=== PATIENT | female | born 1975 | race Caucasian/White ===

== ENCOUNTER 2019-09-17 20:56 | Observation (INO) | payer OTHER, SELFPAY ==
--- NOTE | ~2019-09-17 | XR_ITS ---
XR abdomen/kub 1V 09/17/2019 23:22 Indication: Renal stones Procedure: KUB Comparison: CT dated 09/17/2019 Findings: There is dilation of the renal calyces bilaterally. There is a mildly dilated right ureter with persistent column of contrast to be pelvis, compatible with distally obstructing ureteral stone. There is a filling defect in the left renal pelvis consistent with staghorn calculus. Bowel pattern is nonobstructive. There is small amount of contrast in the bladder. There is delayed right nephrogra m. Impression: 1: Staghorn calculus in the left renal pelvis. 2: Dilated bilateral renal calyces with persistent column of contrast in the right ureter consistent with an obstructing distal ureteral stone. Reviewed, dictated and finalized at location A. Impression: 1: Staghorn calculus in the left renal pelvis. 2: Dilated bilateral renal calyces with persistent column of contrast in the r ight ureter consistent with an obstructing distal ureteral stone.
--- NOTE | ~2019-09-17 | XR_ITS ---
EXAMINATION: XR retrograde pyelo w/stent RT DATE: 09/18/2019 10:47 INDICATION: Right internal ureteral stent placement. TECHNIQUE: Fluoroscopic images from a right internal ureteral stent placement are submitted for mikel landeros. 19 seconds of fluoroscopy time. FINDINGS: Initial right retrograde pyelogram demonstrates a filling defect in the distal aspect the u reter, consistent with ureteral stone. There is a right double-J internal ureteral stent projecting in expected position, with proximal [place] loop at the level of the renal pelvis and distal loop in the pelvis within the bladder lumen. IMPRESSION: 1. Right internal ureteral stent placement. Please refer to real-time procedural findings for detai ls. Reviewed, dictated and finalized at location A. IMPRESSION: 1. Right internal ureteral stent placement. Please refer to real-time procedu ral findings for details.
--- NOTE | ~2019-09-17 | CT_ITS ---
EXAMINATION: CT abdomen pelvis w con DATE: 09/17/2019 22:18 INDICATION: Right flank pain. Kidney stones. TECHNIQUE: Computed tomography (CT) of the abdomen and pelvis was performed without intravenous contr ast. The dose-length product was 506.90 mGy-cm. Automated exposure control and iterative reconstructi on technique were employed. COMPARISON: CT dated 09/15/2010 FINDINGS: Heart size is normal. No significant pleural or pericardial effusion. No significant vascul ar abnormality. No lymphadenopathy. There is a 5 mm distal right ureteral stone with mild right hydronephrosis. There is delayed nephrogr am. There is urothelial thickening and enhancement. There are large staghorn calculi in both kidneys with left renal atrophy. There is endometrial thickening with soft tissue attenuation. Recommend clinical evaluation to exclud e polyps. Nonobstructive bowel gas pattern. Normal appendix. Hepatic steatosis. The spleen, pancreas, adrenal glands are unremarkable. Mild lumbar spondylosis. IMPRESSION: 1. 5 mm distal right ureteral stone with mild hydroureteronephrosis. There is right urothelial enhanc ement which may be due to obstructing stone or less likely ascending urinary tract infection. 2: Large staghorn calculi in both kidneys with left renal atrophy. 3: Endometrial thickening with soft tissue attenuation. Recommend clinical evaluation to exclude poly ps. Reviewed, dictated and finalized at location A. IMPRESSION: 1. 5 mm distal right ureteral stone with mild hydroureteronephrosis. There is r ight urothelial enhancement which may be due to obstructing stone or less likel y ascending urinary tract infection. 2: Large staghorn calculi in both kidneys with left renal atrophy. 3: Endometrial thickening with soft tissue attenuation. Recommend clinical eval uation to exclude polyps.
[2019-09-17 20:57] VITALS: BP 175/86; PULSE 112; RESP 16; TEMP 37.3; O2SAT 100
--- NOTE | 2019-09-17 21:20 | ED.ABDPAIN ---
HPI - Abdominal Pain General Chief Complaint: Urogenital-Female Stated Complaint: kidney stone Time Seen by Provider: 09/17/19 21:15 Source: RN notes reviewed History of Present Illness HPI narrative: Patient presents emergency department from home for abdominal pain. Patient states symptoms began yesterday. The pain is located in the right flank and radiates around to the right lower quadrant described as sharp and stabbing associated with nausea and vomiting. Patient states she has a history of kidney stones and feels like prior. States taken no previous pain medication for the symptoms at home. Followed by urology Dr. Michelle. Denies any fevers or chills chest pain shortness of breath diarrhea or any other symptoms Related Data Allergies Allergy/AdvReac Type Severity Reaction Status Date / Time acetaminophen Allergy Mild Verified 05/29/17 08:31 erythromycin base Allergy Mild Verified 05/29/17 08:31 Macrolide Antibiotics Allergy Unknown Verified 05/29/17 08:31 Penicillins Allergy Unknown Verified 05/29/17 08:31 HYDROCODONE BIT Allergy Mild Uncoded 05/29/17 08:31 Review of Systems Review of Systems: Narrative: Gen.: Denies fevers or chills ENT: Denies congestion Respiratory: Denies shortness of breath or cough CV: Denies chest pain or palpitations GI: See HPI denies burning, urgency, frequency or hematuria Musculoskeletal: Denies back pain or muscle pain Neuro: Denies numbness, tingling, weakness or focal weakness Skin: Denies rash Except as documented, all other systems reviewed and negative PMFSH Past Medical History Medical History (Updated 09/17/19 @ 23:55 by Nima Leija DO) Hypertension Kidney stones Social History Social History (Updated 09/17/19 @ 21:21 by Nima Leija DO) Smoking status: Never smoker Exam Narrative: Exam Narrative: APPEARANCE: No acute distress, nontoxic, resting in bed HEENT: Normocephalic, atraumatic, OMM RESPIRATORY: No respiratory distress, clear to auscultation bilaterally with no rhonchi wheezing or rales CARDIOVASCULAR: RRR s murmur ABDOMINAL: Soft, nondistended, tender to palpation in right upper quadrant right lower quadrant no tenderness left upper quadrant left lower quadrant no rebound or guarding, right flank tenderness MUSCULOSKELETAl: Moves all extremities. No clubbing, cyanosis or edema. NEURO: Awake and alert. Following commands, speech normal, no focal deficits SKIN:: Warm, dry. Normal Color PSYCHIATRIC: Normal affect/mood Course Course Emergency Course: Discussed with Dr. Obrien for urology presentation work-up this time agrees is admission with patient to be n.p.o. started on Levaquin and will follow as inpatient Discussed with Dr. Castillo presentation work-up. Agrees with admission at this time Discussed with patient and family results of workup and diagnosis. Discussed need for admission. Patient and family understand and agree to current treatment plan Vital Signs Vital signs: Vital Signs Temperature 99.1 F 09/17/19 20:57 Pulse Rate 112 H 09/17/19 20:57 Respiratory Rate 16 09/17/19 20:57 Blood Pressure 175/86 H 09/17/19 20:57 Pulse Oximetry 100 09/17/19 20:57 Temperature 99.1 F 09/17/19 20:57 Pulse Rate 112 H 09/17/19 20:57 Respiratory Rate 16 09/17/19 20:57 Blood Pressure 175/86 H 09/17/19 20:57 Pulse Oximetry 100 09/17/19 20:57 MDM - Abdominal Pain Lab Data Result diagrams: 09/17/19 21:24 09/17/19 21:24 Labs: Lab Results 09/17/19 09/17/19 09/17/19 Range/Units 21:24 21:24 21:27 WBC 18.0 H (4.5-10.0) K/mm3 RBC 4.46 (4.2-5.4) M/mm3 Hgb 12.9 (12.0-15.0) g/dL Hct 38.3 (37.0-47.0) % MCV 85.9 (80-100) fl MCH 28.9 (26-34) pg MCHC 33.7 (32-36) g/dl RDW 12.2 (11.5-14.5) % Plt Count 412 H (150-375) k/mm3 MPV 9.1 (7.4-10.4) fl Immature Gran % (Auto) 0.8 H (0-0.5) % Neut % (Auto) 79.7 H (45.5-73.1) % Lymp
[2019-09-17 21:30] LABS: Basophils Absolute Auto 0.1 K/mm3 (0.0-0.1); Basophils Percent Auto 0.4 % (0.2-1.2); Eosinophils Absolute Auto 0.1 K/mm3 (0-0.3); Eosinophils Percent Auto 0.3 % (0-4.4); Hematocrit 38.3 % (37.0-47.0); Hemoglobin 12.9 g/dL (12.0-15.0); Immature Granulocyte Absolute 0.14 K/mm3 (0.00-0.031); Immature Granulocyte Percent A 0.8 % (0-0.5); Lymphocytes Absolute Auto 2.03 K/mm3 (0.9-3.2); Lymphocytes Percent Auto 11.3 % (18.3-44.2); Mean Corpuscular HGB Conc 33.7 g/dl (32-36); Mean Corpuscular Hemoglobin 28.9 pg (26-34); Mean Corpuscular Volume 85.9 fl (80-100); Mean Platelet Volume 9.1 fl (7.4-10.4); Monocytes Absolute Auto 1.4 K/mm3 (0.1-0.6); Monocytes Percent Auto 7.5 % (2.6-8.5); Neutrophils Absolute Auto 14.3 K/mm3 (1.3-6.7); Neutrophils Percent Auto 79.7 % (45.5-73.1); Platelet Count Result 412 k/mm3 (150-375); Red Blood Count 4.46 M/mm3 (4.2-5.4); Red Cell Distribution Width 12.2 % (11.5-14.5)
[2019-09-17] MEDS: SODIUM CHLORIDE 0.9% IV 1,000 ML 999 ML IV CONT (21:30)
[2019-09-17] MEDS: ONDANSETRON INJ 4 MG/2 ML VIAL IV PUSH (21:30)
[2019-09-17] MEDS: MORPHINE SULFATE 4 MG/ML INJ IV PUSH (21:31)
[2019-09-17 21:42] LABS: Blood Urea Nitrogen 22 mg/dL (7-17); Calcium 9.5 mg/dL (8.4-10.2); Carbon Dioxide 22 mmol/L (22-30); Chloride 104 mmol/L (98-107); Estimated Glomerular Filt Rate 49; Glucose 140 mg/dL (65-105); Potassium 3.8 mmol/L (3.4-5.0); Sodium 138 mmol/L (137-145)
[2019-09-17 21:45] LABS: Add Urine Microscopic? YES; Appearance Urine Clear (Clear); Bacteria Urine Trace /hpf; Bilirubin Urine Negative (Negative); Blood Urine 2+ (Negative); Color Urine Yellow (Yellow); Glucose Urine UA Negative (Negative); Ketones Urine Negative (Negative); Leukocyte Esterase Ur Trace LEU/UL (Negative); Mucus Urine Rare /lpf; Nitrate Urine Negative (Negative); Protein Urine 2+ mg/dL (Negative); RBC Urine >75 /hpf (0-2); Specific Grav Ur 1.014 (1.001-1.035); Squamous Epithelial Cell Urine Few /hpf (Few); Urobilinogen Urine Negative mg/dL (<2.0); WBC Urine 16-20 /hpf
[2019-09-17] MEDS: KETOROLAC 30 MG/ML VIAL (*BKC) IV PUSH (22:56)
[2019-09-17] MEDS: TAMSULOSIN HCL 0.4 MG CAPSULE PO (23:48)
[2019-09-17 23:51] LABS: Lactic Acid Reflex 1.1 mmol/L (0.7-2.1)
[2019-09-18] VITALS (11 sets, daily range): BP systolic 68–138; BP diastolic 44–69; PULSE 56–93; RESP 12–20; TEMP 36.7–37.1; O2SAT 95–100; BMI 31.1
--- NOTE | 2019-09-18 00:56 | ADMGEN ---
This patient, Paulina Schrader, was admitted to 3 Med Surg Room 312-01. Patient/family oriented to hospital policies and general routines including ID bracelet, bed and alarms, visiting hours, pain management, procedures, bathroom and other care routines, personal items, smoking policy, room service/diet, and visiting hours. Valuables list has been completed. Information on how to activate the Rapid Response Team has been discussed. Patient/Family are encouraged to report perceived risks to care and to ask questions if they do not understand what they are told or what they should do.
[2019-09-18] MEDS: SODIUM CHLORIDE 0.9% IV 1,000 ML 125 ML IV CONT ×4 (01:13→19:48)
[2019-09-18 06:18] LABS: Basophils Absolute Auto 0.1 K/mm3 (0.0-0.1); Basophils Percent Auto 0.3 % (0.2-1.2); Hematocrit 30.3 % (37.0-47.0); Hemoglobin 9.9 g/dL (12.0-15.0); Immature Granulocyte Absolute 0.11 K/mm3 (0.00-0.031); Immature Granulocyte Percent A 0.7 % (0-0.5); Lymphocytes Absolute Auto 1.21 K/mm3 (0.9-3.2); Lymphocytes Percent Auto 8.2 % (18.3-44.2); Mean Corpuscular HGB Conc 32.7 g/dl (32-36); Mean Corpuscular Hemoglobin 28.7 pg (26-34); Mean Corpuscular Volume 87.8 fl (80-100); Mean Platelet Volume 9.1 fl (7.4-10.4); Monocytes Absolute Auto 1.5 K/mm3 (0.1-0.6); Monocytes Percent Auto 10.3 % (2.6-8.5); Neutrophils Absolute Auto 11.9 K/mm3 (1.3-6.7); Neutrophils Percent Auto 80.5 % (45.5-73.1); Platelet Count Result 296 k/mm3 (150-375); Red Blood Count 3.45 M/mm3 (4.2-5.4); Red Cell Distribution Width 12.5 % (11.5-14.5); White Blood Count 14.8 K/mm3 (4.5-10.0)
[2019-09-18 06:39] LABS: Blood Urea Nitrogen 24 mg/dL (7-17); Calcium 8.2 mg/dL (8.4-10.2); Carbon Dioxide 22 mmol/L (22-30); Chloride 107 mmol/L (98-107); Estimated Glomerular Filt Rate 41; Glucose 111 mg/dL (65-105); Sodium 137 mmol/L (137-145)
--- NOTE | 2019-09-18 07:58 | ECG_ITS ---
Measurements Intervals [place] Rate: 79 P: 33 [place]: 183 QRS: 13 QRSD: 149 T: 2 QT: 461 QTc: 531 Interpretive Statements SINUS RHYTHM LEFT BUNDLE BRANCH BLOCK ABNORMAL ECG Electronically Signed On 09-18-2019 13:11:27 CDT by Elliott Sifuentes D.O.
[2019-09-18] MEDS: ONDANSETRON INJ 4 MG/2 ML VIAL IV PUSH (08:01)
[2019-09-18] MEDS: ONDANSETRON INJ 4 MG/2 ML VIAL (08:07)
--- NOTE | 2019-09-18 09:14 | WPDANESEPP ---
Anes - Eval Pre Procedure Procedure: cysto R stent placement Date/Time: 09/18/19 09:14 Pre Op Diagnosis: kidney stone,UTI Patient Data Age: 44 Gender: F Height: 1.47 m Weight: 67.5 kg Last Vital Signs Temp 36.8 C 09/18/19 06:00 Pulse 65 09/18/19 06:00 Resp 16 09/18/19 06:00 BP 101/53 L 09/18/19 06:00 Pulse Ox 100 09/18/19 06:00 Allergies Allergy/AdvReac Type Severity Reaction Status Date / Time acetaminophen Allergy Mild Verified 05/29/17 08:31 erythromycin base Allergy Mild Verified 05/29/17 08:31 Macrolide Antibiotics Allergy Unknown Verified 05/29/17 08:31 Penicillins Allergy Unknown Verified 05/29/17 08:31 HYDROCODONE BIT Allergy Mild Uncoded 05/29/17 08:31 Home Medications Medication Instructions Recorded Confirmed Type lisinopril-hydrochlorothiazide 1 tablet PO HS 09/18/19 09/18/19 History Laboratory Tests 09/17/19 09/17/19 09/17/19 21:24 21:24 21:27 WBC 18.0 K/mm3 H K/mm3 (4.5-10.0) RBC 4.46 M/mm3 M/mm3 (4.2-5.4) Hgb 12.9 g/dL g/dL (12.0-15.0) Hct 38.3 % % (37.0-47.0) MCV 85.9 fl fl (80-100) MCH 28.9 pg pg (26-34) MCHC 33.7 g/dl g/dl (32-36) RDW 12.2 % % (11.5-14.5) Plt Count 412 k/mm3 H k/mm3 (150-375) MPV 9.1 fl fl (7.4-10.4) Immature Gran % (Auto) 0.8 % H % (0-0.5) Neut % (Auto) 79.7 % H % (45.5-73.1) Lymph % (Auto) 11.3 % L % (18.3-44.2) [place] % (Auto) 7.5 % % (2.6-8.5) Eos % (Auto) 0.3 % % (0-4.4) Baso % (Auto) 0.4 % % (0.2-1.2) Lymph # (Auto) 2.03 K/mm3 K/mm3 (0.9-3.2) [place] # (Auto) 1.4 K/mm3 H K/mm3 (0.1-0.6) Eos # (Auto) 0.1 K/mm3 K/mm3 (0-0.3) Baso # (Auto) 0.1 K/mm3 K/mm3 (0.0-0.1) Abs Immat Gran (auto) 0.14 K/mm3 H K/mm3 (0.00-0.031) Absolute Neuts (auto) 14.3 K/mm3 H K/mm3 (1.3-6.7) Absolute Nucleated RBC 0.0 K/mm3 K/mm3 (0.0-0.012) Nucleated RBC % 0.0 % % (0.0-0.2) Sodium 138 mmol/L mmol/L (137-145) Potassium 3.8 mmol/L mmol/L (3.4-5.0) Chloride 104 mmol/L mmol/L (98-107) Carbon Dioxide 22 mmol/L mmol/L (22-30) BUN 22 mg/dL H mg/dL (7-17) Creatinine 1.20 mg/dL H mg/dL (0.7-1.0) Estim Creat Clear Calc Not Reportable Estimated GFR 49 L (59 - ) Glucose 140 mg/dL H mg/dL (65-105) Lactic Acid Calcium 9.5 mg/dL mg/dL (8.4-10.2) Urine Color Yellow (Yellow) Urine Appearance Clear (Clear) Urine pH 6.0 (5.0-9.0) Ur Specific [place] 1.014 (1.001-1.035) Urine Protein 2+ mg/dL H mg/dL (Negative) Urine Glucose (UA) Negative mg/dL mg/dL (Negative) Urine Ketones Negative mg/dL mg/dL (Negative) Ur Blood (Man) 2+ H (Negative) Urine Nitrate Negative (Negative) Urine Bilirubin Negative (Negative) Urine Urobilinogen Negative mg/dL mg/dL (<2.0) Leukocyte Esterase Rfl Trace CLAUDE/UL H CLAUDE/UL (Negative) Urine RBC >75 /hpf H /hpf (0-2) Urine WBC 16-20 /hpf H /hpf Ur Squamous Epith Cells Few /hpf /hpf (Few) Urine Bacteria Trace /hpf /hpf Urine Mucus Rare /lpf /lpf 09/17/19 09/18/19 09/18/19 23:32 06:03 06:03 WBC 14.8 K/mm3 H K/mm3 (4.5-10.0) RBC 3.45 M/mm3 L M/mm3 (4.2-5.4) Hgb 9.9 g/dL L D g/dL (12.0-15.0) Hct 30.3 % L % (37.0-47.0) MCV 87.8 fl fl (80-100) MCH 28.7 pg pg (26-34) MCHC 32.7 g/dl g/dl (32-36) RDW 12.5 % % (11.5-14.5) Plt Count 296 k/mm3 k/mm3 (150-375) MPV 9.1 fl fl (7.4-10.4) Immature Gran % (Auto) 0.7 % H % (0-0.5) Neut %
--- NOTE | 2019-09-18 10:07 | WPDANESEFPP ---
Anes - Eval Final PreProcedure Day of Procedure 09/18/19 10:07 Patient weight: obese Heart: regular rate and rhythm Lungs: clear to auscultation and normal air movement Airway: Mallampati scale class II Neurological: alert and oriented Last oral intake: >/= 8 hours ASA classification: II Emergent: yes Anesthetic plan: proceed Anesthesia type and monitoring: general GIVS and standard monitoring Informed Consent: The patient's anesthetic plan and its attendant risks and benefits were discussed with the patient/family/POA. Questions were solicited and answers provided to the satisfaction of the patient/family/POA.
--- NOTE | 2019-09-18 10:21 | PC.NURSE ---
To OR per BED [ ], IV OF NS INFUSING WITHOUT DIFFICULTY. SITE CLEAN PT VOIDED BEFORE LEAVING FLOOR, JEWLERY REMOVED AND LOCKED IN CLOSET WITH PHONE. IN NO APPARENT DISTRESS, PT CALLED FAMILY TO LEFT THE KNOW. [ ]
--- NOTE | 2019-09-18 10:24 | WPDURCON ---
Assessment and Plan Assessment and plan (1) Ureteral stone: Code(s): N20.1 - Calculus of ureter Status: Acute Assessment and Plan: Will be taken to the operating room today for cystoscopy and right ureteral stent placement. She understands risks of bleeding, infection, inability to place the stent. She understands I will not be removing the stone at this time and we will plan at on another date. (2) Hydronephrosis: Code(s): N13.30 - Unspecified hydronephrosis Status: Acute (3) Multiple renal calculi: Code(s): N20.0 - Calculus of kidney Status: Acute Assessment and Plan: She has large staghorn stones bilaterally with some left renal atrophy. Ultimately she will require bilateral percutaneous nephrolithotomies. (4) Abnormal urinalysis: Code(s): R82.90 - Unspecified abnormal findings in urine Status: Acute Assessment and Plan: Should be maintained on antibiotics pending urine culture. Urology Consult Note HPI Date Seen: 09/18/19 Requesting Physician: Rupinder Camacho PA-C Primary Care Provider: Matheus Summers MD Consult Narrative Narrative: Paulina Schrader is a 44 year old female she has history of stone disease. She has seen my partner Dr. Michelle in the past. Her last episode of nephrolithiasis was 2 years ago. It passed on its own. She has been asymptomatic for the last 2 years. She is aware that she has large stones in for bilateral kidneys. She comes into the ER last night late complaining of right-sided flank pain of 2 days radiating to the right lower quadrant with some nausea. There is no vomiting. There is no fevers. She had mild intermittent dysuria. I reviewed her CT scan. She has a 5 mm mid to distal ureteral stone on the right. She also has large staghorn stones bilaterally. She was admitted to the hospital for IV antibiotics and urologic intervention. She undergo ureteral stenting today. Review of Systems Review of Systems: All systems reviewed & are unremarkable except as noted in HPI and below [facility] Past Medical History Medical History (Updated 09/18/19 @ 10:27 by Lawrence Obrien MD) Hypertension Kidney stones Social History Social History (Updated 09/17/19 @ 21:21 by Nima C. [place], DO) Smoking status: Never smoker Alcohol intake: current Drinks per week: 0 Substance use: unknown Substance use type: does not use Gender identity (if verbalized by the patient): Female Spiritual care concerns: No Meds Home Medications and Allergies Home Medications Medication Instructions Recorded Confirmed Type lisinopril-hydrochlorothiazide 1 tablet PO HS 09/18/19 09/18/19 History Allergies Allergy/AdvReac Type Severity Reaction Status Date / Time acetaminophen Allergy Mild Verified 05/29/17 08:31 erythromycin base Allergy Mild Verified 05/29/17 08:31 Macrolide Antibiotics Allergy Unknown Verified 05/29/17 08:31 Penicillins Allergy Unknown Verified 05/29/17 08:31 HYDROCODONE BIT Allergy Mild Uncoded 05/29/17 08:31 Vital Signs Vital Signs - 24 hr 09/17/19 20:57 09/18/19 00:30 09/18/19 06:00 Temperature 99.1 F 98.8 F 98.3 F Pulse Rate 112 H 90 65 Respiratory Rate 16 20 16 Blood Pressure 175/86 H 138/69 101/53 L Pulse Oximetry 100 100 100 09/18/19 08:00 Temperature Pulse Rate 93 Respiratory Rate 20 Blood Pressure Pulse Oximetry 100 Exam Const: General: no acute distress and uncomfortable HENMT: Mouth: Yes moist mucous membranes abnormal Eyes: General: appearance normal, both eyes and all related structures Neck: Neck: supple Resp: Effort & Inspection: normal respiratory effort Cardio: Rate: regular rate GI: Inspection: non-distended Skin: General skin exam: normal color Neuro: Speech: normal speech Extrem: General: normal to inspection Psych: Speech and movement: Normal speech and movement present Results Labs CBC & Chem 7: 05/
[2019-09-18] MEDS: LIDOCAINE HCL 2% GEL UROJET 10 ML PKG MUCOUS MEM (10:36)
--- NOTE | 2019-09-18 10:44 | PM.PROC ---
Procedure Note - Detailed Date of procedure: 09/18/19 Pre-op diagnosis: kidney stone,UTI Right ureteral stone, abnormal urinalysis Post-op diagnosis: same Procedure performed: Cystoscopy. Right retrograde pyelogram. Right ureteral stent placement. Description of procedure: She was correctly identified and informed consent obtained. She is brought the operating room. She was given mac anesthesia. She was placed in a dorsal lithotomy position. Pressure points were padded. She was given appropriate perioperative antibiotics. A time-out performed. Cystoscopy revealed a normal-appearing bladder. Door Liner radiograph revealed delayed contrast in the right collecting system. Hydronephrosis was noted. Her renal stones were not visible on the left. The right renal stones were either not visible or obscured by contrast. I did a right retrograde pyelogram. I could see a filling defect in the mid to distal ureter consistent with stone. There was right hydronephrosis. I placed a guidewire into the kidney. I placed a 4.8 variable length stent. Proximal coil in the upper pole kidney. Distal coil in the bladder. The bladder was drained. She was awakened transferred to the PACU stable condition. Implants: 4.8 variable length stent Anesthesia: MAC Surgeon: Lawrence Obrien MD Estimated blood loss (mL): 0 Packing: No Pathology: none sent Condition: stable Disposition: PACU
[2019-09-18] MEDS: LACTATED RINGERS 1,000 ML 30 ML IV CONT (10:49)
--- NOTE | 2019-09-18 12:31 | PC.NURSE ---
Returned from OR perBED IV SITE CLEAN NS INFUSING AT 125CC/HR DENIES THE NEED FOR PAIN MEDS TALKED TO PT CONCERNING HER STENT AND THE NEED FOR STRAINING URINE. WAS CALLED BY RECOVERY NURSE NANCY. [ ]
--- NOTE | 2019-09-18 12:58 | PM.IMHP ---
H&P: HPI History of Present Illness Chief complaint: kidney stone,UTI Narrative: Date of admission: 09/17/2019 Date of service: 09/18/2019 Paulina Schrader is a 44 year old female with a past medical history of hypertension and nephrolithiasis with 2 prior lithotripsies who presented to the emergency department on 09/17/2019 with complaints of right-sided back and flank pain, nausea, and vomiting for approximately 2-3 days. She reports the pain started in her back, and once it began to radiate to the right flank she knew that she had a kidney stone and decided to come to the emergency department. She has associated dysuria and hematuria. She also endorsed feeling somewhat dizzy and lightheaded, as well as having a mild headache related to her pain. She has a history of kidney stones, and reports she has been getting them since she was 19 years old. She has previously been established with Dr. Michelle but has not followed up in approximately 10 years. She recently finished a course of Bactrim approximately 1 month ago for UTI. She has not followed up since then. She continues to endorse right flank pain, dysuria, and hematuria. Her CT scan revealed bilateral staghorn calculi with hydronephrosis and a distally obstructing ureteral stone. She has just returned from cystoscopy and right ureteral stent placement by Dr. Obrien. She tolerated the procedure well. Review of Systems Review of Systems: Narrative: A 12 point review of systems was reviewed with pertinent positives and negatives as per HPI. She denies subjective fever or chills. She denies shortness of breath, chest pain, palpitations. Her last menstrual period was 3 weeks ago. She denies bleeding or bruising. She denies depression or anxiety. [facility] Past Medical History Medical History (Updated 09/18/19 @ 13:17 by Rupinder Camacho PA-C) Hypertension Hypothyroid Kidney stones Surgical History Surgical History (Updated 09/18/19 @ 13:10 by Rupinder Camacho PA-C) History of lithotripsy Previous section Family History Family History (Updated 09/18/19 @ 13:11 by Rupinder Camacho PA-C) Mother Heart disease Unspecified. Patient is adopted and unclear on biologic family history. Social History Social History (Updated 09/18/19 @ 14:43 by Rupinder Camacho PA-C) Social History: She lives at home with her and 2 daughters. 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 She designates her Jamal as her surrogate decision maker and she would like to be full code. Smoking status: Never smoker Alcohol intake: current Drinks per week: 0 Alcohol use details: She typically consumes alcohol once per month. Substance use: unknown Substance use type: does not use Living arrangements: with family Occupation/Education: occupation Gender identity (if verbalized by the patient): Female Spiritual care concerns: No Meds Home Medications and Allergies Home Medications Medication Instructions Recorded Confirmed Type lisinopril-hydrochlorothiazide 1 tablet PO HS 09/18/19 09/18/19 History Allergies Allergy/AdvReac Type Severity Reaction Status Date / Time acetaminophen Allergy Mild Verified 05/29/17 08:31 erythromycin base Allergy Mild Verified 05/29/17 08:31 Macrolide Antibiotics Allergy Unknown Verified 05/29/17 08:31 Penicillins Allergy Unknown Verified 05/29/17 08:31 HYDROCODONE BIT Allergy Mild Uncoded 05/29/17 08:31 Vital Signs Vital Signs - 24 hr 09/17/19 20:57 09/18/19 00:30 09/18/19 06:00 Temperature 99.1 F 98.8 F 98.3 F Pulse Rate 112 H 90 65 Respiratory Rate 16 20 16 Blood Pressure 175/86 H 138/69 101/53 L Pulse Oximetry 100 100 100 09/18/19 08:00 09/18/19 10:49 09/18/19 11:00 Temperature 98.4 F Pulse Rate 93 72 64 Respiratory Rate 20 18 13 Blood Pressure 68/44 L 86/49 L Pulse Oximetry 100 95 96 09/18/19 11:15 09/18/19 11:30 09/18/19 11:41 Temperature Pulse Rate 60 56 L 66
[2019-09-18] MEDS: OXYBUTYNIN CHLORIDE 5 MG TABLET PO ×2 (13:01→17:07)
[2019-09-18] MEDS: FAMOTIDINE 20 MG TABLET PO (20:58)
[2019-09-19] MEDS: TRAMADOL HCL 50 MG TABLET PO (00:17)
[2019-09-19] MEDS: SODIUM CHLORIDE 0.9% IV 1,000 ML 125 ML IV CONT (03:22)
[2019-09-19 06:00] VITALS: BP 120/69; PULSE 65; RESP 20; TEMP 36.7; O2SAT 97
[2019-09-19 06:20] LABS: Basophils Percent Auto 0.5 % (0.2-1.2); Eosinophils Absolute Auto 0.1 K/mm3 (0-0.3); Eosinophils Percent Auto 1.2 % (0-4.4); Hematocrit 28.7 % (37.0-47.0); Hemoglobin 9.3 g/dL (12.0-15.0); Immature Granulocyte Absolute 0.05 K/mm3 (0.00-0.031); Immature Granulocyte Percent A 0.7 % (0-0.5); Lymphocytes Absolute Auto 1.69 K/mm3 (0.9-3.2); Mean Corpuscular HGB Conc 32.4 g/dl (32-36); Mean Corpuscular Hemoglobin 29.2 pg (26-34); Mean Corpuscular Volume 90.3 fl (80-100); Mean Platelet Volume 9.7 fl (7.4-10.4); Monocytes Absolute Auto 0.8 K/mm3 (0.1-0.6); Monocytes Percent Auto 10.7 % (2.6-8.5); Neutrophils Absolute Auto 4.7 K/mm3 (1.3-6.7); Neutrophils Percent Auto 63.9 % (45.5-73.1); Platelet Count Result 230 k/mm3 (150-375); Red Blood Count 3.18 M/mm3 (4.2-5.4); Red Cell Distribution Width 12.8 % (11.5-14.5); White Blood Count 7.4 K/mm3 (4.5-10.0)
[2019-09-19 06:44] LABS: Alanine Aminotransferase 16 U/L (4-35); Albumin Level 2.9 g/dL (3.5-5.1); Alkaline Phosphatase 34 U/L (38-126); Aspartate Amino Transferase 15 U/L (14-36); Bilirubin,Total 0.1 mg/dL (0.2-1.3); Blood Urea Nitrogen 17 mg/dL (7-17); Calcium 7.9 mg/dL (8.4-10.2); Carbon Dioxide 19 mmol/L (22-30); Chloride 111 mmol/L (98-107); Estimated Glomerular Filt Rate 60; Glucose 130 mg/dL (65-105); Potassium 3.4 mmol/L (3.4-5.0); Sodium 137 mmol/L (137-145)
[2019-09-19] MEDS: FAMOTIDINE 20 MG TABLET PO (08:58)
[2019-09-19] MEDS: OXYBUTYNIN CHLORIDE 5 MG TABLET PO (08:58)
--- NOTE | 2019-09-19 09:01 | WPDUROPN2 ---
Progress Note: A&P Assessment and Plan (1) Ureteral stone: Code(s): N20.1 - Calculus of ureter Status: Acute Assessment and Plan: Stent in place. Definitive stone management as an outpatient. Will contact patient. (2) Abnormal urinalysis: Code(s): R82.90 - Unspecified abnormal findings in urine Status: Acute Assessment and Plan: Cultures pending. Once culture available should be placed on culture specific antibiotics For 10 to 14 days.. Subjective Subjective Date/Time Seen: 09/19/19 09:01 She is tolerating her stent. Urine culture pending. Exam Const: General: no acute distress HENMT: Mouth: Yes moist mucous membranes Resp: Effort & Inspection: normal respiratory effort Neuro: Speech: normal speech Extrem: General: normal to inspection Psych: Affect: normal affect Objective Data Vital Signs Vital Signs: Vital Signs - 24 hr 09/18/19 10:49 09/18/19 11:00 09/18/19 11:15 Temperature 98.4 F Pulse Rate 72 64 60 Respiratory Rate 18 13 12 Blood Pressure 68/44 L 86/49 L 96/60 L Pulse Oximetry 95 96 100 09/18/19 11:30 09/18/19 11:41 09/18/19 14:00 Temperature 98.1 F Pulse Rate 56 L 66 66 Respiratory Rate 17 16 18 Blood Pressure 100/61 100/66 105/50 L Pulse Oximetry 100 100 100 09/18/19 16:00 09/18/19 22:00 09/19/19 06:00 Temperature 98.3 F 98.1 F Pulse Rate 74 65 Respiratory Rate 20 20 Blood Pressure 112/60 116/62 120/69 Pulse Oximetry 99 97 Intake/Output Intake/Output: Intake & Output 09/16/19 09/17/19 09/18/19 09/19/19 23:59 23:59 23:59 23:59 Intake Total 1000 4240 1607 Output Total 1000 400 Balance 1000 3240 1207 Meds/Results Medications: Active Medications Generic Name Dose Route Start Last Admin Trade Name Freq PRN Reason Stop Dose Admin Famotidine 20 mg 09/18/19 21:00 09/19/19 08:58 Pepcid PO 20 mg Q12HR GERMAN Administration Hydrochlorothiazide 25 mg 09/18/19 21:00 09/18/19 20:57 Hydrochlorothiazide PO Not Given HS GERMAN Sodium Chloride 1,000 mls @ 125 mls/hr 09/17/19 23:50 09/19/19 05:08 Normal Saline Iv IV CONT 125 mls/hr .Q8H GERMAN Infusion Levofloxacin 750 mg 09/19/19 09:00 09/19/19 08:58 Levaquin Tab PO 750 mg DAILY GERMAN Administration Lisinopril 20 mg 09/18/19 21:00 09/18/19 20:57 Prinivil PO 10/18/19 21:01 Not Given HS GERMAN Morphine Sulfate 4 mg 09/17/19 23:46 Morphine Sulfate Inj IV PUSH Q2H PRN Pain Rated 7-10 Ondansetron HCl 4 mg 09/18/19 07:57 09/18/19 08:01 Zofran Inj IV PUSH 4 mg Q4H PRN Administration Nausea And Vomiting Oxybutynin Chloride 5 mg 09/18/19 13:00 09/19/19 08:58 Ditropan PO 5 mg TID GERMAN Administration Tramadol HCl 50 mg 09/18/19 10:49 09/19/19 00:17 Ultram PO 50 mg Q6H PRN Administration Pain Rated 4-6 Radiology Results: ITS Impressions Abdomen/Pelvis CT 09/18/19 07:32 IMPRESSION: 1. 5 mm distal right ureteral stone with mild hydroureteronephrosis. There is right urothelial enhancement which may be due to obstructing stone or less likely ascending urinary tract infection. 2: Large staghorn calculi in both kidneys with left renal atrophy. 3: Endometrial thickening with soft tissue attenuation. Recommend clinical evaluation to exclude polyps. Abdomen X-Ray 09/18/19 08:14 Impression: 1: Staghorn calculus in the left renal pelvis. 2: Dilated bilateral renal calyces with persistent column of contrast in the right ureter consistent with an obstructing distal ureteral stone. Retrograde Pyelogram 09/18/19 10:50 IMPRESSION: 1. Right internal ureteral stent placement. Please refer to real-time procedural findings for details. Labs Labs: Laboratory Results - last 24 hr 09/19/19 09/19/19 09/19/19 05:49 05:49 05:49 WBC 7.4 RBC 3.18 L Hgb 9.3 L Hct 28.7 L MCV 90.3 MCH 29.2 MCHC 32.4 RDW 12.8 Plt Count 23
--- NOTE | 2019-09-19 10:11 | PM.DS ---
DS: Admitting Diagnosis Admitting Diagnosis Admitting Diagnosis: Calculus of ureter DS: Discharge Diagnosis Discharge Diagnosis (1) Ureteral stone: Code(s): N20.1 - Calculus of ureter Status: Acute Assessment and Plan: Patient presented with right flank pain radiating to right lower quadrant. She was noted to have a 5 mm distal right ureteral stone with mild hydroureteronephrosis. She underwent cystoscopy with right ureteral stent placement by Dr. Obrien on 09/18/2019. Dr. Obrien will contact her for information regarding definitive stone management as an outpatient. She will continue oxybutynin as needed for bladder spasms. (2) Abnormal urinalysis: Code(s): R82.90 - Unspecified abnormal findings in urine Status: Acute Assessment and Plan: Urinalysis was abnormal with trace leukocyte esterase. She was initiated on Levaquin while awaiting cultures. She did have leukocytosis but remained afebrile. Urine cultures revealed multiple organisms, each less than 10,000 CFU, felt to be colonizers. Her leukocytosis resolved. (3) Sepsis: Code(s): A41.9 - Sepsis, unspecified organism Status: Acute Assessment and Plan: She met SIRS criteria for sepsis at presentation evident by tachycardia and leukocytosis, with suspected source of infection being possible urinary tract infection. I suspect that this was more of a response to pain and body stress related to stone burden. Tachycardia and leukocytosis resolved. Lactic remained within normal limits. Preliminary blood cultures revealed no growth to date. Final cultures will be monitored. (4) Acute kidney injury: Code(s): N17.9 - Acute kidney failure, unspecified Status: Acute Assessment and Plan: Patient has mild YAZMIN related to hydroureteronephrosis which resolved following stent placement. At time of discharge, creatinine was 1.0 and BUN was 17. (5) Multiple renal calculi: Code(s): N20.0 - Calculus of kidney Status: Acute Assessment and Plan: CT revealed large bilateral staghorn calculi with left renal atrophy. She will require outpatient stone intervention, and Dr. Obrien will contact her to arrange an appointment. (6) Hypertension: Code(s): I10 - Essential (primary) hypertension Status: Acute Assessment and Plan: Blood pressure was elevated upon presentation at 175/86, likely related to pain. She did have a hypotensive episode during surgery which responded well to 500 cc bolus. Subsequent readings were at target. She will continue lisinopril-HCTZ. (7) Hypothyroid: Code(s): E03.9 - Hypothyroidism, unspecified Status: Acute Assessment and Plan: She has a history of hypothyroidism but has not taken medication in many years. TSH was evaluated and was within normal limits. (8) Thickened endometrium: Code(s): R93.89 - Abnormal findings on diagnostic imaging of other specified body structures Status: Acute Assessment and Plan: CT abdomen/pelvis revealed incidental finding of endometrial thickening with soft tissue attenuation with recommendations for clinical evaluation to exclude polyps. Patient is aware of these findings and was scheduled to undergo endometrial ablation but was postponed due to Covid-19. She believes she has a uterine fibroid. Patient reports regular periods with no breakthrough bleeding. We discussed that she should continue outpatient [facility]NER follow-up and she will schedule an appointment. DS: Summary Hospital Course Reason for hospitalization: Nephrolithiasis Hospital Course: Date of admission: 09/18/2019 Date of discharge: 09/19/2019 Xavier Schrader is a 44-year-old female with a past medical history significant for nephrolithiasis and hypertension who presented to the emergency department on 09/17/2019 with complaints of sharp right flank pain, nausea, and vomiting. She has a hist
== END 2019-09-19 11:00 | disposition home or self-care (01) ==
LOC: ANHED 23:55 → ANH3MEDSUR 09-18 00:01
PROVIDERS: Physician Assistant; Urology; Admitting Provider Internal Medicine; Emergency Provider Emergency Medicine; PCP Family Medicine Adolescent Medicine; Visit Provider Internal Medicine
PROC: (CPT 52352; principal; 2019-09-18 10:30)
DX: N13.2 Hydronephrosis with renal and ureteral calculous obstruction (principal); A41.9 Sepsis, unspecified organism; N39.0 Urinary tract infection, site not specified; N17.9 Acute kidney failure, unspecified; E66.9 Obesity, unspecified; E03.9 Hypothyroidism, unspecified; I10 Essential (primary) hypertension; R82.90 Unspecified abnormal findings in urine; R93.89 Abnormal findings on diagnostic imaging of other specified body structures; Z68.31 Body mass index [BMI] 31.0-31.9, adult; Z87.442 Personal history of urinary calculi
CPT/HCPCS: 52332; 36415; 74018; 74177; 74420; 80048; 80053; 81001; 81025; 83605; 84443; 85025; 87040; 87086; 87088; 93005; 96361; 96365; 96375; 99285; A9270; C1769; C1887; C2617; G0378; J1885; J1956; J2250; J2270; J2405; J2704; J3010; J7030; J7120; Q9967

== ENCOUNTER 2019-09-19 22:18 | Observation (INO) | payer OTHER, SELFPAY ==
--- NOTE | ~2019-09-19 | CT_ITS ---
EXAMINATION: CTA chest PE protocol DATE: 09/20/2019 01:23 INDICATION: Midsternal chest tightness. TECHNIQUE: Computed tomography angiography (CTA) of the chest was performed with 100 mL Omnipaque-350 intravenous contrast timed to evaluate the pulmonary arteries. Coronal maximum intensity projection 3D-reconstructions were created by the technologist. Automated exposure control and iterative reconst ruction technique were employed. The dose-length product was 480.21 mGy-cm. COMPARISON: Chest 2 views 09/19/2019 FINDINGS: The lungs demonstrate smooth septal thickening and mild groundglass opacities, consistent w ith pulmonary edema. There are small pleural effusions. The heart size is normal. No pericardial effu vipul. No pulmonary embolus. There is mild mediastinal lymphadenopathy, likely reactive. There is diff use hepatic steatosis. There is moderate thoracic spondylosis. IMPRESSION: 1. No pulmonary embolus. 2. Moderate pulmonary edema with small pleural effusions. Reviewed, dictated and finalized at location A.
--- NOTE | ~2019-09-19 | XR_ITS ---
EXAMINATION: XR chest 2V EXAM DATE: 09/19/2019 22:44 INDICATION: Mid chest pain. History hypertension. TECHNIQUE: Frontal and lateral projections of the chest obtained and reviewed. There is no prior hernandez dy for comparison. FINDINGS: The lungs are clear. There are no pleural effusions. The cardiomediastinal silhouette is within normal limits. There is no pneumothorax suspected. Mild thoracic spondylosis. IMPRESSION: No acute cardiopulmonary findings. Reviewed, dictated and finalized at location A.
--- NOTE | 2019-09-19 22:19 | ECG_ITS ---
Measurements Intervals [place] Rate: 80 P: 28 OH: 180 QRS: 2 QRSD: 149 T: 35 QT: 379 QTc: 438 Interpretive Statements SINUS RHYTHM LEFT BUNDLE BRANCH BLOCK BASELINE WANDER- AVL, AVF ABNORMAL ECG Electronically Signed On 09-20-2019 6:44:02 CDT by Elliott Sifuentes D.O.
[2019-09-19 22:21] VITALS: BP 163/98; PULSE 80; RESP 22; TEMP 36.4; O2SAT 99
[2019-09-19 22:39] VITALS: PULSE 85; O2SAT 97
[2019-09-19 22:41] LABS: Basophils Percent Auto 0.4 % (0.2-1.2); Eosinophils Absolute Auto 0.1 K/mm3 (0-0.3); Eosinophils Percent Auto 0.9 % (0-4.4); Hematocrit 35.9 % (37.0-47.0); Hemoglobin 11.8 g/dL (12.0-15.0); Immature Granulocyte Absolute 0.04 K/mm3 (0.00-0.031); Immature Granulocyte Percent A 0.4 % (0-0.5); Lymphocytes Absolute Auto 1.67 K/mm3 (0.9-3.2); Lymphocytes Percent Auto 16.9 % (18.3-44.2); Mean Corpuscular HGB Conc 32.9 g/dl (32-36); Mean Corpuscular Hemoglobin 29.1 pg (26-34); Mean Corpuscular Volume 88.4 fl (80-100); Mean Platelet Volume 9.5 fl (7.4-10.4); Monocytes Percent Auto 9.8 % (2.6-8.5); Neutrophils Absolute Auto 7.1 K/mm3 (1.3-6.7); Neutrophils Percent Auto 71.6 % (45.5-73.1); Platelet Count Result 277 k/mm3 (150-375); Red Blood Count 4.06 M/mm3 (4.2-5.4); Red Cell Distribution Width 12.6 % (11.5-14.5); White Blood Count 9.9 K/mm3 (4.5-10.0)
[2019-09-19 22:48] LABS: Prothrombin Time 12.6 Seconds (11.1-14.7)
[2019-09-19 22:49] LABS: Partial Thromboplastin Time 24.1 SECONDS (22.3-36.8)
[2019-09-19 22:50] LABS: Blood Urea Nitrogen 15 mg/dL (7-17); Calcium 9.2 mg/dL (8.4-10.2); Carbon Dioxide 19 mmol/L (22-30); Chloride 108 mmol/L (98-107); Estimated Glomerular Filt Rate 60; Glucose 96 mg/dL (65-105); Potassium 3.8 mmol/L (3.4-5.0); Sodium 137 mmol/L (137-145)
[2019-09-19 23:01] LABS: Troponin I < 0.012 ng/mL (0.000-0.034)
[2019-09-20] VITALS (10 sets, daily range): BP systolic 119–152; BP diastolic 73–85; PULSE 58–103; RESP 17–21; TEMP 36.3–36.8; O2SAT 97–100; BMI 31.1
[2019-09-20] MEDS: ONDANSETRON INJ 4 MG/2 ML VIAL IV PUSH (00:47)
[2019-09-20] MEDS: ASPIRIN 81 MG CHEWABLE TABLET 324 MG PO (00:47)
--- NOTE | 2019-09-20 00:47 | ED.CHESTPAIN ---
HPI - Chest Pain General Chief Complaint: Chest Pain Stated Complaint: chest pain/htn Time Seen by Provider: 09/20/19 00:14 Source: patient Mode of arrival: ambulatory Limitations: no limitations History of Present Illness HPI narrative: This patient is a 44 year old female with history of hypertension who presents for evaluation of chest pain and elevated blood pressure. PAtient was discharged from [facility] yesterday morning after being admitted for kidney stones. Patient states that while she was in the hospital she had episodes of low blood pressure. She noticed today that she developed some swelling in her legs and her blood pressure was high. Her states she was called in a blood pressure medication but he is unable to name the medication. Tonight around 8 pm she developed constant midsternal chest pain. She reports cough, wheezing and sob. She had nausea and vomiting 3 hours prior to her pain. She denies cardiac history. MD complaint: chest pain Related Data Home Medications Medication Instructions Recorded Confirmed lisinopril-hydrochlorothiazide 1 tablet PO HS 09/18/19 09/20/19 Allergies Allergy/AdvReac Type Severity Reaction Status Date / Time acetaminophen Allergy Mild Unknown Verified 09/19/19 22:29 erythromycin base Allergy Mild Unknown Verified 09/19/19 22:29 Macrolide Antibiotics Allergy Unknown Unknown Verified 09/19/19 22:29 Penicillins Allergy Unknown Unknown Verified 09/19/19 22:29 oxybutynin Allergy Swelling Verified 09/19/19 22:29 HYDROCODONE BIT Allergy Mild Unknown Uncoded 09/19/19 22:29 Review of Systems Review of Systems: All systems reviewed & are unremarkable except as noted in HPI and below Constitutional: Constitutional: Denies chills and Denies fever(s) Cardiovascular: Cardiovascular: Reports chest pain and Denies radiating jaw, neck or arm pain Respiratory: Respiratory: Reports cough, Reports dyspnea and Reports wheezing Gastrointestinal: Gastrointestinal: Reports nausea and Reports vomiting PMFSH Past Medical History Medical History (Updated 09/20/19 @ 06:43 by Pamela Marcus MD) Hypertension Hypothyroid Kidney stones Surgical History Surgical History (Updated 09/18/19 @ 13:10 by Rupinder Camacho PA-C) History of lithotripsy Previous section Family History Family History (Updated 09/20/19 @ 05:14 by Evelyn Lindsay RN) Mother Heart disease Unspecified. Patient is adopted and unclear on biologic family history. Hypertension Social History Social History (Updated 09/18/19 @ 14:43 by Rupinder Camacho PA-C) Social History: She lives at home with her and 2 daughters. 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 She designates her Jamal as her surrogate decision maker and she would like to be full code. Smoking status: Never smoker Alcohol intake: current Drinks per week: 0 Substance use: never Substance use type: does not use Gender identity (if verbalized by the patient): Female Spiritual care concerns: No Course Consultations Consultation #1: I discussed case with DR. pereira. Patient will be admitted to [facility] for CHF vs fluid overload. Date: 09/20/19 Time: 03:40 Vital Signs Vital signs: Vital Signs Temperature 97.5 F L 09/19/19 22:21 Pulse Rate 80 09/19/19 22:21 Respiratory Rate 22 H 09/19/19 22:21 Blood Pressure 163/98 H 09/19/19 22:21 Pulse Oximetry 99 09/19/19 22:21 Temperature 97.4 F L 09/20/19 02:36 Pulse Rate 65 09/20/19 05:42 Respiratory Rate 21 H 09/20/19 03:54 Blood Pressure 134/73 09/20/19 03:54 Pulse Oximetry 98 09/20/19 03:54 MDM - Chest Pain Lab Data Attestation: I reviewed the patient's lab results. Result diagrams: 09/19/19 22:32 09/19/19 22:32 Labs: Lab Results 09/19/19 09/19/19 09/19/19 Range/Units 22:32 22:32 22:32 WBC 9.9 (4.5-10.0) K/mm3 RBC 4.06 L (4.2-5.4) M/mm3 Hgb 11.
[2019-09-20] MEDS: ALBUTEROL SULFATE (*SP) AEROSOL 1 PUFF 2 PUFF INHALATION (00:55)
[2019-09-20] MEDS: ALBUTEROL SULFATE (*SP) INHALER 1 PUFF (00:55)
[2019-09-20 01:36] LABS: Troponin I < 0.012 ng/mL (0.000-0.034)
[2019-09-20] MEDS: FUROSEMIDE INJ 40 MG/4 ML VIAL IV PUSH (01:55)
[2019-09-20] MEDS: NITROGLYCERIN OINTMENT 1 INCH DOSE TRANSDERM (01:56)
[2019-09-20 02:16] LABS: NT Pro B Type Natriuretic Pept 1130 PG/ML (5-100)
--- NOTE | 2019-09-20 04:25 | PC.NURSE ---
Patient discharged from ED at 04:25 to be admitted to room 321.
[2019-09-20 04:38] LABS: Troponin I < 0.012 ng/mL (0.000-0.034)
--- NOTE | 2019-09-20 05:05 | ADMGEN ---
This patient, Paulina Schrader, was admitted to 3 Med Surg Room 321-02. Patient/family oriented to hospital policies and general routines including ID bracelet, bed and alarms, visiting hours, pain management, procedures, bathroom and other care routines, personal items, smoking policy, room service/diet, and visiting hours. Valuables list has been completed. Information on how to activate the Rapid Response Team has been discussed. Patient/Family are encouraged to report perceived risks to care and to ask questions if they do not understand what they are told or what they should do.
--- NOTE | 2019-09-20 07:50 | ECHO_ITS ---
Patient Info Name: Paulina Schrader Age: 44 years : 1975 Gender: Female Ht: 58 in Wt: 149 lbs BSA: 1.69 m2 HR: 80 bpm BP: 134 / 76 mmHg Heart Rhythm: Sinus Rhythm Technical Quality: Good Exam Date: 09/20/2019 11:29 AM Exam Location: [facility] Patient Status: Inpatient Admit Date: 09/20/2019 Staff Ordering Physician: Pamela Marcus MD Director Biostatistics: Karthik Cueto RDCS Attending Provider: Rishi Alcantar PA-C Referring Physician: Angeline POTTER; Exam Type: CA echo doppler color flow Study Info Indications I50.9 - Heart failure, unspecified Complete two-dimensional, color flow and Doppler transthoracic echocardiogram is performed. History/Risk Factors Fluid overload concern for CHF; edema, HTN. Summary 1. Left ventricular chamber size, wall thickness and systolic function are normal with no regional wall motion abnormalities with an estimated ejection fraction of 60-65%. Abnormal septal motion secondary to a bundle branch block pattern is present. Grade 2 diastolic dysfunction is noted. 2. Left atrial chamber dimension is mildly enlarged. 3. No pulmonary hypertension, estimated pulmonary arterial systolic pressure is 34 mmHg. 4. No significant valvular heart disease. 5. Normal sinus rhythm. Left Ventricle Left ventricular chamber dimension is normal. Left ventricular systolic function is normal, estimated at 50-55%. There is no increased left ventricular wall thickness. Left ventricular septal wall motion is abnormal with septal motion related to bundle branch block. The left ventricular diastolic function is grade II diastolic dysfunction. Left ventricular chamber size, wall thickness and systolic function are normal with no regional wall motion abnormalities with an estimated ejection fraction of 60-65%. Abnormal septal motion secondary to a bundle branch block pattern is present. Grade 2 diastolic dysfunction is noted. Right Ventricle Right ventricular chamber dimension is normal. Right ventricular systolic function is normal. Left Atria Left atrial chamber dimension is mildly enlarged. Right Atria Right atrial chamber dimension is normal. Aortic Valve The aortic valve is trileaflet. There is no aortic valve sclerosis. There is no aortic valve stenosis. There is no aortic valve regurgitation. Pulmonic Valve The pulmonic valve is normal. There is no pulmonic valve stenosis. There is no pulmonic regurgitation. Mitral Valve The mitral valve has normal leaflets. There is no mitral valve stenosis. There is trace mitral valve regurgitation. Tricuspid Valve The tricuspid valve leaflets are normal. There is no significant tricuspid valve stenosis. There is trace tricuspid valve regurgitation. No pulmonary hypertension, estimated pulmonary arterial systolic pressure is 34 mmHg. Pericardium/Pleural The pericardium appears normal. There is no pericardial effusion. Inferior Vena Cava Normal inferior vena cava with >50% collapse upon inspiration consistent with Empty right atrial pressure, 5 mmHg. Aorta The aortic root size at the sinus of Valsalva is normal. The prox ascending aorta size is normal. Left Ventricular Outflow Tract Name Value Normal LVOT 2D
[2019-09-20] MEDS: FUROSEMIDE INJ 40 MG/4 ML VIAL 20 MG IV PUSH (09:04)
[2019-09-20 09:21] LABS: Blood Urea Nitrogen 14 mg/dL (7-17); Calcium 9.2 mg/dL (8.4-10.2); Carbon Dioxide 24 mmol/L (22-30); Chloride 104 mmol/L (98-107); Estimated Glomerular Filt Rate 54; Glucose 101 mg/dL (65-105); Potassium 3.1 mmol/L (3.4-5.0); Sodium 137 mmol/L (137-145)
--- NOTE | 2019-09-20 11:21 | PM.IMHP ---
H&P: HPI History of Present Illness Chief complaint: CHF Narrative: Paulina Schrader is a 44 year old female with history of hypertension and nephrolithiasis with 2 prior lithotripsies and recent hospitalization and discharge yesterday for cystoscopy and right urtereal stent placement during her stay at that time who presented to the ER last night from home with complaints of chest pain and worsened shortness of breath. Patient states that her chest pain was midsternal and radiated to the back. She is unable to describe the pain. She notes her pain improved with IV Lasix. She did not take anything for her chest pain while at home. She notes she was sitting in her chair watching TV when the pain came on. It is not reproducible with palpation or movement. She states she had increased swelling and shortness of breath which she attributed to the amount of IVF given during her previous stay; this has improved since admission and with IV Lasix. She states she also felt diaphoretic at the time of pain onset, but has since subsided. She occasionally has some dizziness like the room is spinning which her PCP is aware and following. She notes some occasional bladder spasms and occasional right flank pain, but reasonable at this moment. She has no other complaints for me at the moment. Denies any history of CAD or CHF diagnosis. She is compliant with her medications. Denies f/c/s, myalgias/arthralgias, headaches, changes in v/h, current cp/palpitations, current sob, n/v/d/c, abd pain, changes in BMs, dysuria, hematuria, cloudy urine, calf pain Review of Systems Review of Systems: All systems reviewed & are unremarkable except as noted in HPI and below [facility] Past Medical History Medical History Hypertension Hypothyroid Kidney stones Surgical History Surgical History History of lithotripsy Previous section Family History Family History Mother Heart disease Unspecified. Patient is adopted and unclear on biologic family history. Hypertension Social History Social History Social History: She lives at home with her and 2 daughters. 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 She designates her Jamal as her surrogate decision maker and she would like to be full code. Smoking status: Never smoker Alcohol intake: current Drinks per week: 0 Substance use: never Substance use type: does not use Gender identity (if verbalized by the patient): Female Spiritual care concerns: No Meds Home Medications and Allergies Home Medications Medication Instructions Recorded Confirmed Type lisinopril-hydrochlorothiazide 1 tablet PO HS 09/18/19 09/20/19 History oxybutynin chloride 5 mg PO TID PRN #15 tablet 09/19/19 09/20/19 Rx Allergies Allergy/AdvReac Type Severity Reaction Status Date / Time acetaminophen Allergy Mild Unknown Verified 09/19/19 22:29 erythromycin base Allergy Mild Unknown Verified 09/19/19 22:29 Macrolide Antibiotics Allergy Unknown Unknown Verified 09/19/19 22:29 Penicillins Allergy Unknown Unknown Verified 09/19/19 22:29 oxybutynin Allergy Swelling Verified 09/19/19 22:29 HYDROCODONE BIT Allergy Mild Unknown Uncoded 09/19/19 22:29 Vital Signs Vital Signs - 24 hr 09/19/19 22:21 09/19/19 22:39 09/20/19 00:03 Temperature 97.5 F L Pulse Rate 80 85 80 Respiratory Rate 22 H 19 Blood Pressure 163/98 H 139/78 Pulse Oximetry 99 97 97 09/20/19 01:04 09/20/19 02:36 09/20/19 03:54 Temperature 97.4 F L Pulse Rate 72 64 66 Respiratory Rate 19 17 21 H Blood Pressure 152/85 H 148/83 H 134/73 Pulse Oximetry 97 99 98 09/20/19 04:50 09/20/19 05:42 Temperature 97.9 F Pulse Rate 66 65 Respiratory Rate 18 Blood Pressure 134/76 Pulse Oximetry 100 Exam Poli
[2019-09-20] MEDS: POTASSIUM CHLORIDE 20 MEQ TABLET 40 MEQ PO ×2 (12:08→17:56)
--- NOTE | 2019-09-20 16:40 | PM.DS ---
DS: Admitting Diagnosis Admitting Diagnosis Admitting Diagnosis: Fluid overload, unspecified DS: Discharge Diagnosis Discharge Diagnosis (1) Volume overload: Code(s): E87.70 - Fluid overload, unspecified Status: Acute Assessment and Plan: Patient denies any history of CHF. Echo shows normal EF with grade II diastolic dysfunction; abnormal septal wall motion noted. She did report significant edema and SOB since her last admission; she attributes to IVF during stay; this has significantly improved since this morning. Symptoms have improved with IV diuretics. Continue home lisinopril-HCTZ at discharge F/u with PCP after discharge (2) Grade II diastolic dysfunction: Code(s): I51.9 - Heart disease, unspecified Status: Acute Assessment and Plan: Possibly related to CP/SOB and volume overload See above a/p F/u with PCP (3) Chest pain: Code(s): R07.9 - Chest pain, unspecified Status: Resolved Assessment and Plan: Midsternal in nature. Improved with IV diuretics. ACS less likely given no significant ECG changes, negative troponins. Possibly related to volume overload; diastolic dysfunction noted. Telemetry shows sinus rhythm with occasional PAC/PVCs with artifact noted; Asymptomatic overnight/this morning. F/u with PCP (4) Kidney stones: Code(s): N20.0 - Calculus of kidney Status: Acute Assessment and Plan: Patient has no acute issues at this moment. States she does not take oxybutinin as pain/spasms have improved F/u with Urology as outpatient (5) Hypertension: Code(s): I10 - Essential (primary) hypertension Status: Acute Assessment and Plan: BP reviewed and slightly elevated on arrival. improved with IV diuretics. 130s sys this morning Resume home lisinopril-HCTZ tonight Will D/c IV diuretics (6) Hypokalemia: Code(s): E87.6 - Hypokalemia Status: Acute Assessment and Plan: Likely related to IV diuretics. K 3.1 this morning - replaced. K this afternoon is pending; replace as needed Likely f/u with BMP later this week F/u with PCP DS: Summary Hospital Course Reason for hospitalization: Volume overload; CHF evaluation Hospital Course: Patient is a 44 year old female with history of hypertension and nephrolithiasis with 2 prior lithotripsies and recent hospitalization (d/c on 09/18) for cystoscopy and right urtereal stent placement during her stay at that time who presented to the ER evening of 09/18 from home with complaints of chest pain and worsened shortness of breath. Patient states that her chest pain was midsternal and radiated to the back. She is unable to describe the pain. She notes her pain improved with IV Lasix. She did not take anything for her chest pain while at home. She notes she was sitting in her chair watching TV when the pain came on. It is not reproducible with palpation or movement. She states she had increased swelling and shortness of breath which she attributed to the amount of IVF given during her previous stay; this has improved since admission and with IV Lasix. In fact, this nearly resolved by discharge on 09/19. She states she also felt diaphoretic at the time of pain onset, but has since subsided. She occasionally has some dizziness like the room is spinning which her PCP is aware and following. She notes some occasional bladder spasms and occasional right flank pain, but reasonable at this moment. Denies any history of CAD or CHF diagnosis. She is compliant with her medications. Patient admitted under this setting. Please see H&P for further details. Presenting VS: Temp Pulse Resp BP Pulse Ox 97.5 F L 80 22 H 163/98 H 99 09/19/19 22:21 09/19/19 2
[2019-09-20 17:21] LABS: Blood Urea Nitrogen 16 mg/dL (7-17); Calcium 10.1 mg/dL (8.4-10.2); Carbon Dioxide 28 mmol/L (22-30); Chloride 101 mmol/L (98-107); Estimated Glomerular Filt Rate 49; Glucose 142 mg/dL (65-105); Potassium 3.3 mmol/L (3.4-5.0); Sodium 138 mmol/L (137-145)
== END 2019-09-20 18:35 | disposition home or self-care (01) ==
LOC: ANHED 09-20 04:24 → ANH3MEDSUR 09-20 05:01
PROVIDERS: Physician Assistant; Admitting Provider Internal Medicine; Emergency Provider General Practice; PCP Family Medicine Adolescent Medicine; Visit Provider Internal Medicine
DX: E87.70 Fluid overload, unspecified (principal); R07.9 Chest pain, unspecified; N20.0 Calculus of kidney; E87.6 Hypokalemia; E03.9 Hypothyroidism, unspecified; I11.9 Hypertensive heart disease without heart failure; R06.02 Shortness of breath
CPT/HCPCS: 36415; 71046; 71275; 80048; 83880; 84484; 85025; 85610; 85730; 93005; 93306; 96374; 96375; 96376; 99285; A9270; G0378; J1940; J2405; Q9967

== ENCOUNTER 2019-09-23 12:38 | Outpatient (CLI) | payer OTHER, SELFPAY ==
[2019-09-23 13:38] LABS: Blood Urea Nitrogen 21 mg/dL (7-17); Calcium 10.3 mg/dL (8.4-10.2); Carbon Dioxide 27 mmol/L (22-30); Chloride 101 mmol/L (98-107); Estimated Glomerular Filt Rate 54; Glucose 86 mg/dL (65-105); Potassium 3.7 mmol/L (3.4-5.0); Sodium 137 mmol/L (137-145)
== END 2019-09-23 12:39 | disposition home or self-care (01) ==
PROVIDERS: PCP Family Medicine Adolescent Medicine; Visit Provider Physician Assistant
DX: E87.6 Hypokalemia (principal); N20.0 Calculus of kidney
CPT/HCPCS: 36415; 80048

== ENCOUNTER 2019-11-22 09:30 | Outpatient (CLI) | payer OTHER, SELFPAY ==
[2019-11-22 09:49] LABS: Hematocrit 37.9 % (37.0-47.0); Hemoglobin 12.5 g/dL (12.0-15.0); Mean Corpuscular Hemoglobin 28.2 pg (26-34); Mean Corpuscular Volume 85.6 fl (80-100); Platelet Count Result 368 k/mm3 (150-375); Red Blood Count 4.43 M/mm3 (4.2-5.4); Red Cell Distribution Width 12.6 % (11.5-14.5); White Blood Count 9.5 K/mm3 (4.5-10.0)
[2019-11-22 10:11] LABS: Alanine Aminotransferase 28 U/L (4-35); Alkaline Phosphatase 48 U/L (38-126); Anion Gap 11.5 mmol/L (7-16); Aspartate Amino Transferase 24 U/L (14-36); Bilirubin,Total 0.3 mg/dL (0.2-1.3); Blood Urea Nitrogen 13 mg/dL (7-17); Carbon Dioxide 27 mmol/L (22-30); Chloride 103 mmol/L (98-107); Estimated Glomerular Filt Rate > 60; Glucose 106 mg/dL (65-105); Potassium 3.5 mmol/L (3.4-5.0); Sodium 138 mmol/L (137-145)
== END 2019-11-22 09:31 | disposition home or self-care (01) ==
LOC: ANHSURGERY 09:33
PROVIDERS: PCP Family Medicine Adolescent Medicine; Visit Provider Surgery
DX: K62.89 Other specified diseases of anus and rectum (principal)
CPT/HCPCS: 36415; 80053; 85027

== ENCOUNTER 2023-06-29 15:58 | Outpatient (CLI) | payer OTHER, SELFPAY ==
--- NOTE | ~2023-06-29 | XR_ITS ---
EXAMINATION: XR chest 2V DATE: 06/29/2023 16:11 INDICATION: Shortness of breath. Upper chest tightness. TECHNIQUE: Frontal and lateral views of the chest were obtained. COMPARISON: Chest 2 views 09/19/2019 FINDINGS: There is no pneumonia, pleural effusion, or pneumothorax. The heart size is normal. IMPRESSION: 1. No acute cardiopulmonary disease. Reviewed, dictated and finalized at location A.
== END 2023-06-29 15:59 ==
PROVIDERS: PCP Family Medicine Adolescent Medicine; Visit Provider Family Medicine Adolescent Medicine
DX: R06.02 Shortness of breath (principal)
CPT/HCPCS: 71046

== ENCOUNTER 2023-07-28 08:46 | Outpatient (CLI) | payer OTHER, SELFPAY ==
--- NOTE | ~2023-07-28 | XR_ITS ---
EXAMINATION: XR abdomen/kub 1V DATE: 07/28/2023 09:01 INDICATION: Bilateral kidney stones. TECHNIQUE: A supine view of the abdomen on 2 radiographs was obtained. COMPARISON: None. FINDINGS: There are no dilated loops of bowel. There are approximately 4 stones in right kidney measu ring up to 16 mm. There is a 15 mm stone in left kidney. A calcification in left pelvis may be a phle bolith. IMPRESSION: 1. Bilateral kidney stones. Reviewed, dictated and finalized at location E. IMPRESSION: 1. Bilateral kidney stones.
== END 2023-07-28 08:47 ==
LOC: MICIMG 08:48
PROVIDERS: PCP Family Medicine Adolescent Medicine; Visit Provider Urology
DX: N20.0 Calculus of kidney (principal)
CPT/HCPCS: 74018

== ENCOUNTER 2023-08-05 12:37 | Outpatient (CLI) | payer OTHER, SELFPAY ==
--- NOTE | ~2023-08-05 | CT_ITS ---
Non-contrast CT scan of the Abdomen and Pelvis Clinical indication: Kidney stones Technique: 2.5 mm axial scans were obtained through the abdomen and pelvis without intravenous or or al contrast. Dose reduction technique was used on this scan by utilizing automated exposure control a nd iterative reconstruction technique. The dose-length product (DLP) was 337.40 mGy-cm. Findings: Images through the lung bases reveal no abnormalities. There are multiple bilateral lower pole renal stones, measuring up to 1.6 cm in diameter on the right , and 1.5 cm in diameter on the left. No ureteral stone or hydronephrosis on either side. Diffuse hepatic steatosis noted. Gallbladder absent. The spleen, pancreas, and adrenals appear normal . There is no aortic aneurysm. There is no evidence of bowel obstruction. Normal appendix. Images through the pelvis were performed. There is no evidence of ascites or lymphadenopathy. Urinary bladder unremarkable. No adnexal mass seen. Impression: Bilateral nonobstructing nephrolithiasis, as detailed above. Reviewed, dictated and finalized at [facility]. Impression: Bilateral nonobstructing nephrolithiasis, as detailed above.
== END 2023-08-05 12:38 | disposition home or self-care (01) ==
LOC: ANHIMG 12:40
PROVIDERS: PCP Family Medicine Adolescent Medicine; Visit Provider Urology
DX: N20.0 Calculus of kidney (principal)
CPT/HCPCS: 74176

== ENCOUNTER 2024-05-09 14:42 | Outpatient (CLI) | payer OTHER, SELFPAY ==
--- NOTE | ~2024-05-09 | US_ITS ---
EXAMINATION: US thyroid DATE: 05/09/2024 15:08 INDICATION: Thyroid enlargement. Other general symptoms and signs. TECHNIQUE: Multiple ultrasound images of the thyroid were obtained. COMPARISON: None. FINDINGS: The right thyroid lobe measures 4.6 x 2.0 x 1.2 cm. The left thyroid lobe measures 3.7 x 1.7 x 1.3 c m. In the right thyroid lobe, there is a 3 mm nodule. In the left thyroid lobe, there is a 7 mm mitesh d, hypoechoic, wider than tall nodule with smooth margin without echogenic foci (TI-RADS TR4). In the left thyroid lobe, there is a 7 mm solid, hyperechoic, wider than tall nodule with ill-defined bharat n without echogenic foci (TR3). IMPRESSION: 1. Small thyroid nodules, likely not clinically significant. No follow-up is needed. Reviewed, dictated and finalized at location B. [facility] [employer] IMPRESSION: 1. Small thyroid nodules, likely not clinically significant. No follow-up is ne eded.
--- NOTE | ~2024-05-09 | CT_ITS ---
EXAMINATION: CT abdomen pelvis wo con DATE: 05/09/2024 14:59 INDICATION: Unspecified abdominal pain TECHNIQUE: Computed tomography (CT) of the abdomen and pelvis was performed without intravenous contr ast. Automated exposure control and iterative reconstruction technique were employed. The dose-length product was 564.89 mGy-cm. COMPARISON: 08/05/2023 FINDINGS: Lung bases are clear. Heart size is normal. No pericardial or pleural effusion. Subtly heterogeneous pattern of diffuse hepatic steatosis. Gallbladder, spleen, pancreas, bilateral adrenal glands are nor mal. Bilateral nonobstructing nephrolithiasis with 4 stones in the right kidney and 3 stones in the l eft kidney the largest each kidney measuring up to 1.5 cm. No ureteral stones or hydronephrosis. Mild scattered diverticulosis without adjacent inflammatory change to suggest diverticulitis. Small bowel and appendix are normal. Bladder, anteverted uterus and bilateral adnexa are unremarkable. No free i ntraperitoneal gas or fluid. No pathologically enlarged abdominal or pelvic lymphadenopathy. Mild lum bar and moderate lower thoracic spondylosis. IMPRESSION: 1. No acute intra-abdominal/pelvic process. 2. Bilateral nonobstructing nephrolithiasis. 2. Diffuse hepatic steatosis. Reviewed, dictated and finalized at location A. [employer]
== END 2024-05-09 14:43 | disposition home or self-care (01) ==
PROVIDERS: PCP Nurse Practitioner Family; Visit Provider Nurse Practitioner Family
DX: E03.9 Hypothyroidism, unspecified (principal); R10.9 Unspecified abdominal pain; N20.0 Calculus of kidney; R35.0 Frequency of micturition; R68.89 Other general symptoms and signs; E04.2 Nontoxic multinodular goiter
CPT/HCPCS: 74176; 76536